=== PATIENT | male | born 1975 | race Caucasian/White ===

== ENCOUNTER 2019-04-19 00:14 | Emergency (ER) | payer BC ==
[~2019-04-19] VITALS: Ht 182.9 cm; Wt 113.6 kg
[2019-04-19 01:07] LABS: BASO # 0.1 (0.0-0.2); BASO % 0.7 % (0.0-2.0); EOS # 0.2 (0.0-0.7); EOS % 1.4 % (0-4.0); GRAN % 59.4 % (42.2-75.2); HEMATOCRIT 48.1 % (42.0-52.0); HEMOGLOBIN 16.5 g/dl (13.5-18.0); LYMPH # 3.6 (1.2-3.4); LYMPH % 30.3 % (20.0-51.0); MEAN CELL VOLUME 93 fl (80.0-100.0); MEAN CORPUSCULAR HEMOGLOBIN 32 pg (27.0-31.0); MEAN CORPUSCULAR HGB CONC 34 g/dl (33.0-37.0); MEAN PLATELET VOLUME 10.4 fl (7.4-10.4); MONO # 0.9 (0.1-0.6); MONO % 7.7 % (1.7-9.3); PLATELET COUNT 430 K/mm3 (130-400); REDCELL DISTRIBUTION WIDTH-CV 12.7 % (11.5-14.5)
[2019-04-19 01:20] LABS: ALANINE AMINOTRANSFERASE 17 U/L (21-72); ALBUMIN 4.5 gm/dL (3.5-5.0); ALKALINE PHOSPHATASE 78 U/L (50-136); ANION GAP 10 mmol/L (7-16); AST,SGOT 17 U/L (15-37); BILIRUBIN,TOTAL 0.6 mg/dL (0.0-1.0); BLOOD UREA NITROGEN 17 mg/dL (9-20); C-REACTIVE PROTEIN < 0.5 mg/dL (0.0-0.9); CARBON DIOXIDE 26 mmol/L (22-30); CHLORIDE 103 mmol/L (98-107); CREATININE, serum 0.96 (0.66-1.25); GLUCOSE 120 mg/dL (74-106); POTASSIUM 3.4 mmol/L (3.4-5.0); SODIUM 139 mmol/L (137-145); TOTAL PROTEIN 7.4 gm/dL (6.4-8.2)
[2019-04-19] MEDS ORDERED: EPIPEN 2-PAK1 MG/ML IM (01:29)
[2019-04-19] MEDS ORDERED: BENADRYL25 M2 PO (01:31)
[2019-04-19] MEDS ORDERED: PREDNISONE20 MG PO (01:31)
[2019-04-19] MEDS ORDERED: PEPCID 20MG TAB20 MG PO (01:31)
[2019-04-19 02:28] VITALS: BP 119/78; PULSE 78
== END 2019-04-19 02:28 | disposition home or self-care (01) ==
LOC: COL.ER 00:14
PROVIDERS: Emergency Medicine
DX: T78.40XA Allergy, unspecified, initial encounter (principal)
CPT/HCPCS: J0171; J1200; J2930; J7030

== ENCOUNTER → 2021-03-26 | Outpatient (CLI) | payer BC ==
[~2021-03-26] MED LIST: BENADRYL25 M2 PO; EPIPEN 2-PAK1 MG/ML IM; PEPCID 20MG TAB20 MG PO; PREDNISONE20 MG PO
== END ==
LOC: COL.RAD 11:25
DX: M65.842 Other synovitis and tenosynovitis, left hand (principal)

== ENCOUNTER → 2023-11-24 | Outpatient (CLI) | payer BC ==
[~2023-11-24] VITALS: Ht 182.9 cm; Wt 107.0 kg
[~2023-11-24] MED LIST changes: +LEVAQUIN 750MG750 M1 PO; +MOBIC15 MG PO; +NORCO 325 MG-51 TAB PO; +NORVASC 5MG5 MG/TAB PO; +TESSALON PERLE200 MG PO; +TYLENOL 8 HR PO
[2023-11-24 09:49] VITALS: BP 130/87; PULSE 68; TEMP 97.9
[2023-11-24 10:50] VITALS: BP 128/83; PULSE 74
[2023-11-24 11:35] LABS: CHOLESTEROL RISK RATIO 4.9; TOTAL PROTEIN 6.7 g/dl (6.2-8.1)
== END ==
LOC: COL.RAD 09:39
PROVIDERS: Nurse Practitioner Family
DX: J90 Pleural effusion, not elsewhere classified (principal)
CPT/HCPCS: 19804

== ENCOUNTER → 2023-11-27 | Outpatient (CLI) | payer BC ==
[~2023-11-27] VITALS: Ht 182.9 cm; Wt 106.0 kg
[2023-11-27 09:35] VITALS: BP 143/82; PULSE 85; TEMP 97.8
[2023-11-27 10:40] VITALS: BP 131/90; PULSE 85
[2023-11-27 12:48] LABS: PLEURAL FLUID RBC 1000 /mm3 (0-0); PLEURAL FLUID WBC 4414 /mm3
[2023-11-27 12:49] LABS: PLEURAL FLUID APPEARANCE HAZY; PLEURAL FLUID COLOR YELLOW
== END ==
LOC: COL.RAD 08:40
PROVIDERS: Nurse Practitioner Family
DX: J90 Pleural effusion, not elsewhere classified (principal)
CPT/HCPCS: 19804

== ENCOUNTER 2023-11-29 13:33 | Inpatient (IN) | payer BC ==
[~2023-11-29] VITALS: Ht 182.9 cm; Wt 104.3 kg
[~2023-11-29 13:33] MED LIST changes: -TYLENOL 8 HR PO
[2023-11-29 14:04] VITALS: BP 133/76; PULSE 94; TEMP 97.8
--- NOTE | 2023-11-29 14:10 | NUR ---
PATIENT ARRIVED TO MEDICAL. PATIENT ON ROOM AIR, REPORTS HAVING A COUGH FOR ABOUT A MONTH. PATIENT REPORTS PERIODS OF SHORTNESS OF AIR AND CHEST PRESSURE/PAIN DURING BREATHING AND COUGH.PATIENT AT BEDSIDE.PATIENT SKIN INTACT. SOME MINOR UPPER EXTREMITY BRUISING. PATIENT CALL LIGHT WITHIN REACH. BED AT LOWEST POSITION.
[2023-11-29] MEDS ORDERED: Acetaminophen 325 MG TAB PO PRN (14:30)
[2023-11-29] MEDS ORDERED: Ondansetron 4 MG/2 ML VIAL IV PRN (14:30)
[2023-11-29 15:29] VITALS: BP 137/84; PULSE 77; TEMP 98.4
[2023-11-29] MEDS ORDERED: Vancomycin 1.75 GM,Special Dose/Pharmacy Prepared 1.75 GM in NS 500 ML IV SCH (16:00)
[2023-11-29] MEDS ORDERED: TYLENOL 8 HR PO (16:14)
--- NOTE | 2023-11-29 16:37 | NUR ---
THIS NURSE CONTACTED [facility] SPOKE TO KRISTIAN FOR RESENT ECHO IMPRESSION TO BE FAXED TO THIS HOSPITAL.
[2023-11-29 16:55] LABS: ALBUMIN 2.9 g/dL (3.5-5.0); BILIRUBIN,TOTAL 0.4 mg/dL (0.2-1.2); CALCIUM 8.6 mg/dL (8.4-10.2); CREATININE, serum 0.77 mg/dL (0.72-1.25); POTASSIUM 4.5 mEq/L (3.5-4.5); TOTAL PROTEIN 6.4 g/dl (6.2-8.1)
[2023-11-29 17:02] VITALS: BP_SYST 137
[2023-11-29 17:19] LABS: BASO # 0.1 K/mm3 (0.0-0.2); BASO % 1.2 % (0.0-2.0); EOS # 0.7 K/mm3 (0.0-0.7); EOS % 7.8 % (0.0-4.0); GRAN # 6.9 K/mm3 (1.4-6.5); HEMOGLOBIN 12.5 g/dl (13.5-18.0); LYMPH % 10.1 % (20.0-51.0); MEAN CELL VOLUME 92 fl (80.0-100.0); MEAN CORPUSCULAR HEMOGLOBIN 31 pg (27-31); MEAN CORPUSCULAR HGB CONC 34 g/dl (33.0-37.0); MEAN PLATELET VOLUME 9.8 fl (7.4-10.4); MONO # 0.7 K/mm3 (0.1-0.6); MONO % 7.5 % (1.7-9.3); PLATELET COUNT 442 K/mm3 (130-400); RED BLOOD COUNT 4.02 M/mm3 (4.20-5.60); REDCELL DISTRIBUTION WIDTH-CV 12.6 % (11.5-14.5)
[2023-11-29 17:20] LABS: HEMATOCRIT 36.9 % (42.0-52.0)
[2023-11-29 19:40] VITALS: BP 138/75; PULSE 90; TEMP 98.4
--- NOTE | 2023-11-29 20:54 | NUR ---
PATIENT IS RESTING IN BED WATCHING TV. REPORTING SOME GENERALIZED CHEST DISCOMFORT, NOT LOCALIZED TO ANY SPECIFIC AREA. HE IS CURRENTLY ON ROOM AIR AND DENIES ANY FEELING OF SHORTNESS OF BREATH. ALSO DENIES ANY CHEST TIGHTNESS OR NAUSEA. CALL LIGHT IS WITHIN REACH. BED IS LOCKED AND IN LOW POSITION.
[2023-11-29 20:55] VITALS: BP_SYST 138
[2023-11-29] MEDS ORDERED: amLODIPine 5 MG TAB PO SCH (21:00)
[2023-11-29 23:37] VITALS: BP 118/65; PULSE 84; TEMP 98.4
[2023-11-30] VITALS (17 sets, daily range): BP systolic 110–133; BP diastolic 71–81; PULSE 71–94; TEMP 97.9–98.9
[2023-11-30 06:23] LABS: BASO # 0.1 K/mm3 (0.0-0.2); BASO % 1.2 % (0.0-2.0); EOS # 0.8 K/mm3 (0.0-0.7); EOS % 8.8 % (0.0-4.0); GRAN % 70.4 % (42.2-75.2); HEMATOCRIT 35.4 % (42.0-52.0); LYMPH # 0.9 K/mm3 (1.2-3.4); LYMPH % 10.7 % (20.0-51.0); MEAN CELL VOLUME 92 fl (80.0-100.0); MEAN CORPUSCULAR HEMOGLOBIN 31 pg (27-31); MEAN CORPUSCULAR HGB CONC 34 g/dl (33.0-37.0); MONO # 0.7 K/mm3 (0.1-0.6); MONO % 8.5 % (1.7-9.3); PLATELET COUNT 400 K/mm3 (130-400); RED BLOOD COUNT 3.87 M/mm3 (4.20-5.60); REDCELL DISTRIBUTION WIDTH-CV 12.6 % (11.5-14.5)
--- NOTE | 2023-11-30 06:30 | NUR ---
BEDSIDE SHIFT REPORT RECIEVED AT THIS TIME. PT DENIES PAIN AT THIS TIME.
[2023-11-30 06:36] LABS: ALBUMIN 2.5 g/dL (3.5-5.0); BILIRUBIN,TOTAL 0.4 mg/dL (0.2-1.2); CALCIUM 8.4 mg/dL (8.4-10.2); CREATININE, serum 0.71 mg/dL (0.72-1.25); POTASSIUM 3.9 mEq/L (3.5-4.5); TOTAL PROTEIN 5.6 g/dl (6.2-8.1)
--- NOTE | 2023-11-30 08:09 | NUR ---
SHIFT ASSESSMENT COMPLETED AT THIS TIME. PT A&OX4. PT DENIES PAIN AND NAUSEA. REPORTS SOB THAT COMES AND GOES. O2 AT 2L/NC. PT HAS QUESTIONS FOR THE DOCTOR. THIS NURSE INFORMED PT THAT THEY WILL BE MAKING ROUNDS SOON AND WILL INFOR HIM THE PLAN FOR TODAY. NO FURTHER QUESTIONS OR CONCERNS AT THIS TIME. CALLIGHT WITHIN REACH.
--- NOTE | 2023-11-30 09:18 | NUR ---
SW met with patient to complete initial assessment for discharge planning. Patient presented as alert and oriented x 4, verified that he lives with his Shira ([phone]) in [place]. Patient sees Vianca Lucero as his PCP and uses [facility] pharmacy. Patient denies having and DME. Patient denies having a DPOA completed and does not want to complete one at this time. Patient plans to return home at discharge. Discharge plan: Home
[2023-11-30] MEDS ORDERED: LR 1,000 ML IV SCH (11:00)
--- NOTE | 2023-11-30 11:53 | NUR ---
Data: Spiritual Care visit offered during Telecommunication Lines Repairer rounds. Patient politely declined. Assessment: None. Patient declined. Plan of Care: [facility] will remain available as needed/requested while Patient is admitted to this hospital.
[2023-11-30] MEDS ORDERED: Lidocaine PF 2% (20 MG/ML) 5 ML VIAL ONE (13:11)
--- NOTE | 2023-11-30 19:49 | NUR ---
PATIENT IS RESTING IN BED WITH FAMILY AT BEDSIDE. DENIES ANY PAIN OR SHORTNESS OF BREATH AT THIS TIME. HE IS REQUESTING TO HAVE HIS NASAL CANNULA NEXT TO HIM FOR WHEN HE IS READY TO GO TO SLEEP. CALL LIGHT IS WITHIN REACH. BED IS LOCKED AND IN LOW POSITION.
[2023-12-01] VITALS (12 sets, daily range): BP systolic 108–153; BP diastolic 69–94; PULSE 71–87; TEMP 98.1–99.2
[2023-12-01 06:55] LABS: BASO # 0.1 K/mm3 (0.0-0.2); BASO % 0.9 % (0.0-2.0); EOS # 0.8 K/mm3 (0.0-0.7); EOS % 8.8 % (0.0-4.0); GRAN # 6.1 K/mm3 (1.4-6.5); GRAN % 71.8 % (42.2-75.2); HEMOGLOBIN 11.8 g/dl (13.5-18.0); LYMPH # 0.8 K/mm3 (1.2-3.4); LYMPH % 9.9 % (20.0-51.0); MEAN CELL VOLUME 90 fl (80.0-100.0); MEAN CORPUSCULAR HEMOGLOBIN 30 pg (27-31); MEAN CORPUSCULAR HGB CONC 33 g/dl (33.0-37.0); MEAN PLATELET VOLUME 9.8 fl (7.4-10.4); MONO # 0.7 K/mm3 (0.1-0.6); PLATELET COUNT 398 K/mm3 (130-400); RED BLOOD COUNT 3.95 M/mm3 (4.20-5.60); REDCELL DISTRIBUTION WIDTH-CV 12.4 % (11.5-14.5)
[2023-12-01 07:02] LABS: HEMATOCRIT 35.6 % (42.0-52.0)
[2023-12-01 07:15] LABS: ALBUMIN 2.6 g/dL (3.5-5.0); BILIRUBIN,TOTAL 0.4 mg/dL (0.2-1.2); CALCIUM 8.4 mg/dL (8.4-10.2); CREATININE, serum 0.73 mg/dL (0.72-1.25); TOTAL PROTEIN 5.7 g/dl (6.2-8.1)
[2023-12-01] MEDS ORDERED: Iohexol 300 - 100 ML VIAL IV ONE (07:25)
[2023-12-01] MEDS ORDERED: NS 100 ML IV SCH (07:27)
[2023-12-01] MEDS ORDERED: LR 1,000 ML IV SCH (14:15)
[2023-12-01] MEDS ORDERED: fentaNYL 50 MCG/ML 2 ML VIAL ONE (16:21)
[2023-12-01] MEDS ORDERED: Lidocaine PF 2% (20 MG/ML) 5 ML VIAL ONE (17:38)
--- NOTE | 2023-12-01 18:20 | NUR ---
PATIENT ARRIVED TO ROOM FROM PACU AWAKE ALERT AND ORIENTED. PATIENT WITH R SIDED CHEST TUBE. CHEST TUBE PLACED TO WALL SUCTION BY HOT DIP PLATER-ON LOW CONTINUOUS SUCTION. NO DRAINAGE CURRENTLY NOTED. PATIENTS POST OP VITALS INITIATED, VSS STABLE. CALL LIGHT WTIHIN REACH. NO ORDERS CURRENTLY FOR CHEST TUBE MANAGEMENT, THIS RN FOLLOW THE INSTRUCTIONS OF HOT DIP PLATER THAT BROUGHT PATIENT TO THE UNIT.
[2023-12-01] MEDS ORDERED: HYDROmorphone 0.5 MG/0.5 ML SYRINGE IV PRN (18:30)
[2023-12-01] MEDS ORDERED: oxyCODONE 5 MG TAB PO PRN (18:30)
--- NOTE | 2023-12-01 18:45 | NUR ---
PATIENT WITH COMPLAINTS OF PAIN TO R SIDE 09/14. PO PAIN MEDICATION GIVEN. PATIEN TDENEIS ANY OTHER NEEDS OR REQUESTS AT THIS TIME. CALL LIGHT WITHIN REACH. MANY FAMILY MEMBERS AT BEDSIDE.
--- NOTE | 2023-12-01 19:05 | NUR ---
PATIENT SITTING UP IN BED WITH TV ON WITH FAMILY AT BEDSIDE WITH NO ACUTE DISTRESS NOTED. PATIENT ON 1 LITER OF OXYGEN VIA NC. DOUBLE LUMEN PICC LINE TO LEFT UPPER ARM INTACT WITH NO COMPLICATIONS NOTED. RIGHT CHEST TUBE DRAINING SCANT AMOUNT OF RED LIQUID NOTED. CHEST TUBE CONNECT TO LOW CONSTANCT SUCTION WITH 20 ML OF SUCTION. BEDSIDE SHIFT REPORT COMPLETED WITH URIEL AT THIS TIME. PATIENT DENIES ANY NEEDS. BED IN LOW POSITION WITH WHEELS LOCKED WITH RAILS UP X3 AND CALL LIGHT WITHIN REACH.
--- NOTE | 2023-12-01 21:00 | NUR ---
PATIENT SITTING UP IN BED WITH EYES CLOSED WITH TV ON WITH NO FAMILY PRESENT WITH NO ACUTE DISTRESS NOTED. PATIENT ON 1 LITER OF OXYGEN VIA NC. PICC LINE TO LEFT UPPER ARM INTACT WITH NO COMPLICATIONS NOTED. CHEST TUBE INTACT, CONNECTED TO CONTINUOUS LOW SUCTION, AND DRAINING SCANT AMOUNT OF RED TINGED LIQUID. ASSESSMET AND MEDICATION ADMINISTRATION COMPLETED AT THIS TIME. PATIENT TOLERATED WELL. PATIENT C/O OF PAIN WITH STATED PAIN LEVEL OF 5 ON SCALE OF 0 TO 10. PO TYLENOL GIVEN PER MD ORDER. PATIENT DENIES ANY OTHER NEEDS. BED IN LOW POSITION WITH WHEELS LOCKED WITH RAILS UP X3 AND CALL LIGHT WITHIN REACH.
--- NOTE | 2023-12-01 23:30 | NUR ---
PATIENT C/O PAIN. PO ROXICODONE GIVEN PER MD ORDER WITH PATIENT STATED PAIN LEVEL OF 5 ON SCALE OF 0 TO 10. PATIENT TOLERATED WELL. ALL NEEDS MET. BED IN LOW POSITION WITH WHEELS LOCKED WITH RAILS UP X3 AND CALL LIGHT WITHIN REACH.
[2023-12-02] VITALS (10 sets, daily range): BP systolic 105–149; BP diastolic 64–87; PULSE 57–82; TEMP 98–98.3
[2023-12-02 07:04] LABS: BASO # 0.1 K/mm3 (0.0-0.2); BASO % 0.6 % (0.0-2.0); EOS # 0.7 K/mm3 (0.0-0.7); EOS % 7.3 % (0.0-4.0); GRAN # 7.2 K/mm3 (1.4-6.5); GRAN % 76.9 % (42.2-75.2); HEMOGLOBIN 11.9 g/dl (13.5-18.0); LYMPH # 0.7 K/mm3 (1.2-3.4); MEAN CELL VOLUME 91 fl (80.0-100.0); MEAN CORPUSCULAR HEMOGLOBIN 30 pg (27-31); MEAN CORPUSCULAR HGB CONC 33 g/dl (33.0-37.0); MEAN PLATELET VOLUME 10.1 fl (7.4-10.4); MONO # 0.7 K/mm3 (0.1-0.6); MONO % 7.4 % (1.7-9.3); PLATELET COUNT 399 K/mm3 (130-400); RED BLOOD COUNT 3.96 M/mm3 (4.20-5.60); REDCELL DISTRIBUTION WIDTH-CV 12.7 % (11.5-14.5)
[2023-12-02 07:14] LABS: HEMATOCRIT 35.9 % (42.0-52.0)
[2023-12-02 07:19] LABS: ALBUMIN 2.6 g/dL (3.5-5.0); BILIRUBIN,TOTAL 0.4 mg/dL (0.2-1.2); CALCIUM 8.5 mg/dL (8.4-10.2); CREATININE, serum 0.71 mg/dL (0.72-1.25); POTASSIUM 3.9 mEq/L (3.5-4.5); TOTAL PROTEIN 5.8 g/dl (6.2-8.1)
--- NOTE | 2023-12-02 08:00 | NUR ---
PATIENT AWAKE AND ALERT, SITTIGN UP IN BED,. PATIENT DENIES ANY NEEDS OR COMPLAINTS AT THIS TIME. MEDICATION GIVEN FOR PAIN, CALL LIGHT WTIHIN REACH. CHEST TUBE TO CONSTINUOUS WALL SUCTION.
[2023-12-02] MEDS ORDERED: Ketorolac 15 MG/ML VIAL IV PRN (10:45)
[2023-12-02] MEDS ORDERED: Cyclobenzaprine 10 MG TAB PO PRN (10:45)
[2023-12-02] MEDS ORDERED: Benzonatate 100 MG CAP PO SCH (12:00)
[2023-12-02] MEDS ORDERED: diphenhydrAMINE 25 MG CAP PO PRN (12:15)
--- NOTE | 2023-12-02 12:30 | NUR ---
MARGUERITE RECIEVED IV TORALDOL, PO FLEXERIL AND A TESSLON ZACK ALL TOGETHER AROUND [id number]. PATIENT CALLED THIS RN AT APROX 1215 AND STATED HE HAS A RASH. PATIENT WITH RASH COVERING FULL BODY. MOST APPARENT TO TRUNK, PATIENT VOICES BEING ITCY. INFORMED AND DISCUSSED. PATIENT HAS RECIEVED TESSLON ZACK AT HOME WELL HAS RECIEVED TORADOL IN THE PAST WITH NO ISSUE. PATIENT GIVEN PO BENADARYL FOR ALLERGIC REACTION. FLEXERIL ADDED TO PATIENT ALLERY LIST.
--- NOTE | 2023-12-02 15:34 | NUR ---
[facility]
--- NOTE | 2023-12-02 20:14 | NUR ---
PT RESTING IN BED ALERT AND OREINTED X4, RIGHT SIDED CHEST TUBE, CDI TO DEPENDENT DRAINAGE, DRAINING RED FLUID AT THIS TIME. PAIN RATED 3/10 ON EXERTION AND WHEN HE COUGHS BUT PER PT REPORT MANAGABLE. WAITING ON AMBULANCE TRANSPORT FOR PT TO BE TRANSPORTED TO HIGHER LEVEL OF CARE. L UPPER ARM PICC FLUSHING WELL. VITAL SIGNS WNL. DENIES NEEDS AT THIS TIME. CALL LIGHT WITHIN REACH.
--- NOTE | 2023-12-02 21:44 | NUR ---
Transport arrived at 0930 to transport pt, pt in pain rated 7/10 in chest with exertion and coughing. Provider Angel Koo MD notified of pt pain and orders given for one time dose of Oxycodone 5mg po, TORB.
--- NOTE | 2023-12-02 23:35 | NUR ---
REPORT GIVEN TO TRANSPORT AROUND [id number]. ALL DISCHARGE INSTRUCTIONS AND PAPERWORK GIVEN TO TRANSPORT. [facility] CALLED [place] WAS TOLD THAT PT WAS ON THEIR WAY.
== END 2023-12-02 21:40 | disposition short-term general hospital (02) | DRG 186 ==
LOC: MEDICAL 13:33
PROVIDERS: Physician Assistant; ADMIT Hospitalist
PROC: 0W993ZZ Drainage of Right Pleural Cavity, Percutaneous Approach (ICD-10-PCS; principal; 2023-11-29)
DX: J90 Pleural effusion, not elsewhere classified (principal); J96.01 Acute respiratory failure with hypoxia; R91.1 Solitary pulmonary nodule; I10 Essential (primary) hypertension; M19.90 Unspecified osteoarthritis, unspecified site
CPT/HCPCS: A7041; A7048; C1751; J1885; J2704; J3010; J3370; J7040; Q3014; Q9967